=== PATIENT | male | born 1980 | race Caucasian/White ===

== ENCOUNTER 2017-05-14 17:13 | Emergency (ER) | payer MEDICAID ==
[~2017-05-14] VITALS: Ht 188 cm; Wt 68.0 kg
[2017-05-14 17:18] VITALS: BP 140/89
== END 2017-05-15 02:57 | disposition left against medical advice (07) ==
LOC: ER 17:18
DX: R10.10 Upper abdominal pain, unspecified (principal); R11.0 Nausea; Z53.21 Procedure and treatment not carried out due to patient leaving prior to being seen by health care provider

== ENCOUNTER 2017-05-16 09:06 | Emergency (ER) | payer MEDICAID ==
[~2017-05-16] VITALS: Ht 188 cm; Wt 68.0 kg
[2017-05-16 09:51] LABS: Urine RBC None Seen /hpf (0 - 3)
[2017-05-16 09:52] LABS: Basophils # (auto) 0 uL; Basophils % (auto) 0.3 % (0.0-2.0); CONDITION AutoValidated; Eosinophils # (auto) 0 uL; Eosinophils % (auto) 0.5 % (0.0-7.0); Hematocrit 45.8 % (41.0-53.0); Hemoglobin 15.1 g/dL (13.5-17.5); Lymphocytes % (auto) 14.1 % (10.0-50.0); Mean Corpuscular Hemoglobin 29.3 pg (28.0-32.0); Mean Corpuscular Hgb Conc. 32.9 g/dL (32.0-36.0); Mean Platelet Volume 8.3 fL (7.4-10.4); Monocytes # (auto) 0.4 uL; Monocytes % (auto) 5.5 % (0.0-12.0); Neutrophils # (auto) 5.7 uL; Neutrophils % (auto) 79.6 % (37.0-80.0); Platelet Count (auto) 283 10^3/uL (140-450); Red Cell Distribution Width 14.9 % (11.6-16.0); White Blood Cell 7.2 10^3/uL (4.4-10.8)
[2017-05-16 09:59] LABS: Urine Bilirubin Negative (Negative); Urine Blood Negative /uL (Negative); Urine Color Yellow (Yellow); Urine Ketone Negative (Negative); Urine Nitrite Negative (Negative); Urine Urobilinogen Normal (Negative); Urine pH 5.5 (5.0-8.0)
[2017-05-16 10:00] LABS: Urine Glucose 2+ mg/dL (Normal)
[2017-05-16] MEDS ORDERED: ALUM & MAG HYDROX-SIMETH LIQ(MAALOX) 30 ML PO ONE (10:00)
[2017-05-16] MEDS ORDERED: PANTOPRAZOLE 40 MG TAB PO ONE (10:00)
[2017-05-16] MEDS ORDERED: DONNATAL 5ml ORAL Elix (BELLADONNA ALK-PHENOBARB) PO ONE (10:00)
[2017-05-16] MEDS ORDERED: LIDOCAINE VISCOUS 2% 15ML UD PO ONE (10:00)
[2017-05-16 10:15] LABS: Albumin 4.3 g/dL (3.4-5.0); BUN/Creatinine Ratio 14.7; Bilirubin, Total 1.6 mg/dL (0.2-1.0); Calcium 9.2 mg/dL (8.5-10.1); Potassium 4.3 mmol/L (3.5-5.1); Total Protein 7.6 g/dL (6.4-8.2)
[2017-05-16 10:37] LABS: Amylase 64 U/L (25-115)
[2017-05-16 10:46] VITALS: BP 129/76
== END 2017-05-16 11:21 | disposition home or self-care (01) ==
LOC: ER 09:08
DX: K29.70 Gastritis, unspecified, without bleeding (principal); F12.10 Cannabis abuse, uncomplicated
CPT/HCPCS: 36415; 76705; 80053; 81001; 82150; 83690; 85025; 86677

== ENCOUNTER 2017-09-22 12:50 | Emergency (ER) | payer MEDICAID, OTHER ==
[~2017-09-22] VITALS: Ht 188 cm; Wt 63.5 kg
[2017-09-22 13:27] VITALS: BP 127/91
[2017-09-22] MEDS ORDERED: KETOROLAC TROMETH 60MG/2ML VIAL IM ONE (14:00)
== END 2017-09-22 14:21 | disposition home or self-care (01) ==
LOC: ER 12:50
DX: J01.10 Acute frontal sinusitis, unspecified (principal); F12.90 Cannabis use, unspecified, uncomplicated
CPT/HCPCS: 96372; 99283; J1885